=== PATIENT | male | born 1990 | race Caucasian/White ===

== ENCOUNTER 2024-12-01 16:02 | Emergency (ER) | payer OTHER ==
[2024-12-01] MEDS: Diphtheria,Pertussis(Acell),Tetanus Vaccine 0.5 ML Syringe IM ONE (16:44)
[2024-12-01] MEDS: Lidocaine 1% 5 ML VIAL INJECT ONE (16:45)
== END 2024-12-01 17:58 | disposition home or self-care (01) ==
LOC: MW.ED 16:02
DX: S61.411A Laceration without foreign body of right hand, initial encounter (principal); Z23 Encounter for immunization; Z75.8 Other problems related to medical facilities and other health care; W26.8XXA Contact with other sharp object(s), not elsewhere classified, initial encounter
CPT/HCPCS: 12001; 90471; 90715; 99282-25; 99283; J3490